=== PATIENT | female | born 1950 | race Caucasian/White ===

== ENCOUNTER 2025-04-19 07:00 | Day surgery (SDC) | payer MEDICARE, SELFPAY ==
[2025-04-19] VITALS (16 sets, daily range): BP systolic 144–223; BP diastolic 62–126; PULSE 64–78; RESP 12–21; TEMP 36–36.2; O2SAT 91–97; BMI 31.7
--- NOTE | 2025-04-19 06:16 | W.ANESPRE ---
General Info Date of Service Date Performed: 04/19/25 Height: 5 ft 2.5 in Weight: 80.087 kg Body Mass Index (BMI): 31.7 Surgical Procedure: Operation Date: 04/19/25 08:40 Proposed Procedure Side Surgeon p Micro Laryngoscopy w/True Vocal Cord Biopsy Left Ollie Wiggins MD Meds Allergies and Home Medications Allergies Allergy/AdvReac Type Severity Reaction Status Date / Time amoxicillin (From Augmentin) Allergy diarrhea Verified 04/19/25 07:22 and mouth sores clavulanic acid (From Allergy diarrhea Verified 04/19/25 07:22 Augmentin) and mouth sores Home Medication ?Medication ?Instructions ?Recorded acetaminophen 325 mg tablet 325 mg PO ONCE PRN 02/03/25 (Tylenol) albuterol sulfate 90 mcg/actuation 2 inh inhalation Q6H PRN 02/03/25 breath activated powder inhaler famotidine 20 mg tablet 20 mg PO DAILY 02/03/25 krill oil 1 cap PO DAILY 02/03/25 multivitamin (Daily Multi-Vitamin 1 tab PO DAILY 02/03/25 tablet) triamterene 37.5 1 tab PO DAILY 02/03/25 mg-hydrochlorothiazide 25 mg tablet losartan 25 mg tablet 25 mg PO DAILY 04/15/25 Current Visit Medications: Current Medications Generic Name Dose Route Start Last Admin Trade Name Freq PRN Reason Stop Dose Admin Ringer's Solution 1,000 mls @ 50 mls/hr 04/19/25 06:00 IV 04/19/25 23:59 INFUSION BRITTNEY IV Miscellaneous Supplies 1 each 04/19/25 06:00 Iv Access IV 04/19/25 23:59 DIRECTED BRITTNEY Sodium Chloride 0 ml 04/19/25 06:00 Normal Saline Flush 10 Ml Syr IV 04/19/25 23:59 PRN PRN Sodium Chloride 0 ml 04/19/25 06:00 Normal Saline 10 Ml Vial IJ 04/19/25 23:59 DIRECTED PRN Sterile Water 0 ml 04/19/25 06:00 Water,Injection,Sterile 10 Ml Vial IJ 04/19/25 23:59 DIRECTED PRN PFSH Active Problems Active Problems: Problem Status Onset Code 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 Medical History Medical History Obesity GERD (gastroesophageal reflux disease) Eczema Essential hypertension Dyspnea Generalized anxiety disorder Chronic kidney disease, stage 3 unspecified Menopause Hyperlipidemia Knee pain, left Acute sinusitis Surgical History Surgical History (Updated 04/19/25 @ 07:29 by Deedee Esteves) History of esophagogastroduodenoscopy (EGD) Hx of colonoscopy Hx of appendectomy Tobacco Smoking/Tobacco Use Status: Former Tobacco Use Alcohol Alcohol Intake: never Substance Use Substance use: Never Substance use type: does not use Vital Signs and Lab Results Vital Signs Most Recent Vital Signs in EMR: Temp Pulse Resp BP Pulse Ox 36.0 C L 78 16 223/88 H 97 04/19/25 07:26 04/19/25 07:26 04/19/25 07:26 04/19/25 07:26 04/19/25 07:26 Anesthesia Assessment and Plan Anesthesia History Personal History: No History of Anesthesia Complications Family History: No Family History of Anesthesia Complications Exercise Tolerance Exercise Tolerance: Metabolic Equivalents>4 Cardiac & Pulmonary Exam Cardiac Exam: Normal S1/S2 Heart Sounds Pulmonary Exam: Clear Bilateral Breath Sounds Implantable Cardiac Device Does patient have a Pacemaker or an ICD?: No Airway Exam Known Difficult Airway: No Mallampati Class: 1 Mouth Opening: Normal (> 3cm) Thyromental Distance: Greater than 3 cm Neck Range of Motion: Limited ROM Neck Circumference: Normal Teeth Condition: Normal Dentition ASA Classification ASA Score: ASA 2 Emergency Case?: No NPO Status NPO Status: NPO Clears >2 hours, Solids >8 hours Anesthesia Plan Resuscitation Status: Full Code Anesthesia Technique: General Anesthesia Airway Planned: Endotracheal Tube Monitors Used: Standard Monitors Preoperative Comments:: 74 yo female for micro laryngoscopy. Sig PMHx: HTN (losartan, triamterene-HCTz. Meds being switched around by PCP, BP elevated today, but has been 140-160 the past few BPs. checks BP at home, runs 120/), RAD (albuterol - this was for a persitant cough a while ago, hasn't used), GERD (famotidine - rare use), CKDIII, anxiety. Former smoker.
[2025-04-19] MEDS: Lactated Ringers 1,000 ML 50 ML IV (07:55)
--- NOTE | 2025-04-19 08:49 | W.PM.DSUDISC ---
Date of service: 04/19/25 Discharge Plan Disposition Patient Disposition: Home Condition: Good Discharge Details Reason For Visit: Microlaryngoscopy with biopsy Attending Provider: Ollie Wiggins Primary Care Provider: Clary Arellano Home Meds and New Rx's Prescriptions: No Action triamterene-hydrochlorothiazid 37.5-25 mg tablet 1 tab PO DAILY krill oil 1 cap PO DAILY albuterol sulfate 90 mcg/actuation aerosol powdr breath activated 2 inh inhalation Q6H PRN acetaminophen [Tylenol] 325 mg tablet 325 mg PO ONCE PRN multivitamin [Daily Multi-Vitamin] Tablet 1 tab PO DAILY famotidine 20 mg tablet 20 mg PO DAILY losartan 25 mg tablet 25 mg PO DAILY Discharge Instructions Additional Instructions: My cell phone number is [phone]. Please call with any questions or concerns. If you are unable to reach me and feel it is an emergency, please call 911 or proceed to the emergency room No driving for 72 hours Tylenol or ibuprofen for pain control No limitations on diet Avoid shouting, whispering, or excess talking Call my office if you have not heard from me by next Saturday with regard to pathology results. Follow-up will be determined by the outcome of pathology Diet:: As Tolerated
--- NOTE | 2025-04-19 08:52 | ROE_ITS ---
Operative Note Operative Note PRE-OP DIAGNOSIS: Hoarseness, left vocal cord lesion POST-OP DIAGNOSIS: same PROCEDURE: Microlaryngoscopy with biopsy of left vocal cord SURGEON: Ollie Wiggins ANESTHESIA TYPE: General LMA/ETT Refer to Anesthesia Record ESTIMATED BLOOD LOSS: 1 PATHOLOGY: other (Left vocal cord biopsy) COMPLICATIONS: None Patient was transported to: PACU Patient's condition: stable Indications: Patient with persistent hoarseness with left vocal cord abnormalities appreciated on flexible laryngoscopy with failure to improve with treatment. Options were explained to the patient regarding further management. She elected to undergo the above procedure. Risks including bleeding, infection, hoarseness, need for further treatment, and damage to dentition were discussed at length. H&P was reviewed. There have been no changes. The patient still wished to proceed. Findings: Left erythematous vocal cord, with no obvious extension of the subglottic or s upraglottic region. No extension to the right cord Procedure Description: After obtaining adequate level of general endotracheal anesthesia the patient was positioned in supine position and prepped and draped in appropriate fashion. A Holinger laryngoscope was carefully introduced in the oral cavity protecting the upper dentition with a 4 x 4. This was advanced into the larynx gently and afforded excellent visualization of the vocal cords. This was then placed into suspension and the operating microscope with a 400 mm lens was moved into pos ition. Using the microscope for direct visualization, the left vocal cord was biopsied using upgoing cup forceps. The tissues were friable and bleeding was minimal and self-limited. Care was taken not to damage the vocalis ligament. Once been accomplished, the Holinger laryngoscope was taken out of suspension and carefully removed from the larynx, oropharynx, and then oral cavity. Dentition was inspected revealing no damage to the dentition and the lips were undamaged as well. The patient was then awakened and extubated by anesthesia and taken the recovery room in stable condition. I was present throughout the entire case. Date of Procedure: 04/19/25
--- NOTE | 2025-04-19 09:45 | VOCCOR_PTH ---
PATIENT: Eloisa Deshpande LOC: [facility] U#:[id number] AGE/SX: 74/F ROOM: RE04/19/[address]: Ollie Wiggins MD : [id number] BED: DIS: 04/19/2025 SPEC #: [id number] RECD: 04/19/25 13:00 STATUS: ANSHUL REMolina #: [id number] SAMAN: 04/19/25 09:[address]: Ollie Wiggins DEPT: Surgical Specimen RECD BY: Nuvia Gleason ENTERED: 04/19/25 13:01 SP TYPE: VOCCOR OTHR DR: Clary Arellano NP Tissues: 1 - VOCAL CORD Procedures: GROSS AND MICRO LEVEL 4 Comments: [id number]
--- NOTE | 2025-04-19 10:27 | W.ANESPOSTOP ---
Postoperative Evaluation Date, Time and Location Date Performed: 04/19/25 Time Performed: 10:27 Patient Location: Day Surgery Unit Vital Signs Most Recent Imported Vital Signs: Most Recent Vital Signs Temp Pulse Resp BP Pulse Ox 36.2 C L 66 16 163/72 H 95 04/19/25 10:21 04/19/25 10:21 04/19/25 10:21 04/19/25 10:21 04/19/25 10:21 Pain Score Most Recent Pain Score: Most Recent Pain Score Pain Level 0 04/19/25 10:21 Assessment Mental Status: Awake (Alert & Oriented to Patient Baseline) Airway and Respiratory Function: Patent airway with normal (patient baseline) respiratory exam Cardiovascular Function: Hemodynamically Stable Hydration Status: Adequately Hydrated Nausea & Vomiting: No Nausea or Vomiting Pain: Pain is tolerable per patient Peripheral Nerve Block: Patient did not receive a nerve block
== END 2025-04-19 11:14 | disposition home or self-care (01) ==
PROVIDERS: PCP Physician Assistant; Visit Provider Otolaryngology
PROC: 0CJS8ZZ Inspection of Larynx, Via Natural or Artificial Opening Endoscopic (ICD-10-PCS; CPT 31575; principal; 2025-04-19 08:30)
DX: D02.0 Carcinoma in situ of larynx (principal); R49.0 Dysphonia; J38.7 Other diseases of larynx; K21.9 Gastro-esophageal reflux disease without esophagitis; F41.1 Generalized anxiety disorder; N18.30 Chronic kidney disease, stage 3 unspecified; E78.5 Hyperlipidemia, unspecified; I12.9 Hypertensive chronic kidney disease with stage 1 through stage 4 chronic kidney disease, or unspecified chronic kidney disease; E66.9 Obesity, unspecified; Z68.32 Body mass index [BMI] 32.0-32.9, adult
CPT/HCPCS: 31536; 88305; J0131; J1100; J2003; J2405; J2704

== ENCOUNTER 2025-08-16 15:21 | Outpatient (CLI) | payer MEDICARE, SELFPAY ==
[2025-08-16 15:33] LABS: Abs Immature Grans 0.03 10^3/uL (0.0-0.06); HCT 38.7 % (36.0-46.0); HGB 12.5 g/dL (11.2-15.7); Immature Grans % 0.4 %; MCH 28.3 pg (27.0-33.0); MCHC 32.3 % (32.0-36.0); MCV 88 fL (80-95); MPV 9.3 fL (8.0-11.0); Platelet Count 287 10^3/uL (130-400); RBC 4.41 10^6/uL (3.93-5.22); RDW 13.2 % (11.7-14.6); RDW-SD 42.8 fL; WBC 7.14 10^3/uL (4.4-10.8)
[2025-08-16 15:47] LABS: ALT 19 U/L (14-59); AST 16 U/L (15-37); Albumin 3.9 g/dL (3.4-5.0); Alkaline Phosphatase 104 U/L (46-116); Anion Gap 7.7 mmol/L (3-11); BUN 24 mg/dL (7-18); Bilirubin, Total 0.5 mg/dL (0.2-1.0); CO2 30.3 mmol/L (21.0-32.0); Calcium 10.1 mg/dL (8.5-10.1); Chloride 102 mmol/L (98-107); Estimated GFR 52.73 (mL/min/1.73m2); Glucose 104 mg/dL (74-106); Magnesium 2.0 mg/dL (1.8-2.4); Potassium 4.2 mmol/L (3.5-5.1); Sodium 140 mmol/L (136-145); Total Protein 7.7 g/dL (6.4-8.2)
== END 2025-08-16 15:22 | disposition home or self-care (01) ==
LOC: LBO 15:22
PROVIDERS: PCP Physician Assistant; Visit Provider Internal Medicine Hematology
DX: C32.9 Malignant neoplasm of larynx, unspecified (principal)
CPT/HCPCS: 36415; 80053; 83735; 85025